=== PATIENT | male | born 1995 ===

== ENCOUNTER → 2017-09-28 | Outpatient (CLI) | payer OTHER ==
--- NOTE | 2017-09-28 11:40 | RADIOLOGY REPORT (SQ) ---
EXAM DESCRIPTION: U/S RETROPERITON (RENAL/AORTA); U/S LTD DUPLEX ART/WALI FLOW COMPLETED DATE/TIME: 09/28/2017 11:08 am; 09/28/2017 11:14 am REASON FOR STUDY: I70.1 FLAKO I70.1 ATHEROSCLEROSIS OF RENAL ARTERY COMPARISON: None. TECHNIQUE: Realtime and static grayscale images acquired. Selected color Doppler, velocities and spe ctral images recorded. LIMITATIONS: Difficulty visualizing the renal arteries origin off the aorta due to midline bowel gas . FINDINGS: RIGHT KIDNEY: RENAL ARTERY VELOCITIES: At the hilum, 50 cm/sec. Segmental artery velocity 89 cm/sec. RENAL VEIN: Color doppler flow present, patent. VELOCITY RATIO: 0.4. The right renal artery tracings of the hilum demonstrate a blunted waveforms, w ith delayed upstroke and depressed systolic peak. This could indicate right-sided proximal renal art emmanuel stenosis. Follow-up with CTA or MRA of the renal arteries is recommended KIDNEY: Normal size, 12.3 cm in length. No significant pathology. LEFT KIDNEY: RENAL ARTERY VELOCITIES: At the hilum, 100 cm/sec. Segmental artery velocity 69 cm/sec. RENAL VEIN: Color doppler flow present, patent. VELOCITY RATIO: 0.56. Normal waveforms. KIDNEY: Normal size, 12.7 cm in length. No significant pathology. BLADDER: Decompressed. Ureteral jets not identified. OTHER: No other significant finding. IMPRESSION: Abnormal waveform, right renal artery at the hilum. Findings are worrisome for a more p roximal right renal artery stenosis at its origin. Consider follow-up CTA or MRA of the renal arteri es Kidneys are normal size bilaterally without cysts, stones, hydronephrosis, or masses. COMMENT: NORMAL RENAL ARTERY/AORTA VELOCITY RATIO IS LESS THAN OR EQUAL TO 3.5. TECHNICAL DOCUMENTATION: JOB ID: [id number]- All Rights Reserved
== END ==
LOC: RAD 10:06
DX: I70.1 Atherosclerosis of renal artery (principal)
CPT/HCPCS: 76770; 93976